=== PATIENT | female | born 1980 | race Caucasian/White ===

== ENCOUNTER 2016-06-09 11:43 | Outpatient (CLI) ==
[2016-04-20 13:22] VITALS: BMI 25.6
[2016-06-09 13:19] LABS: BILIRUBIN,URINE 3+ (NEGATIVE); KETONES,URINE 1+ (NEGATIVE); LEUKOCYTE ESTERASE ,URINE 3+ (NEGATIVE); NITRITE,URINE Negative (NEGATIVE); PH,URINE 5.5 (5-9); PROTEIN,URINE 3+ (NEGATIVE); URINE, BLOOD 3+ (NEGATIVE)
[2016-06-09 13:29] LABS: ADD URINE MICROSCOPIC YES
[2016-06-09 13:34] LABS: BACTERIA,URINE 3+ (NOT PRESENT)
== END 2016-06-09 11:44 | disposition home or self-care (01) ==
LOC: LAB 11:43
PROVIDERS: ATTEND Nurse Practitioner Family
DX: R31.9 Hematuria, unspecified (principal); N39.0 Urinary tract infection, site not specified
CPT/HCPCS: 81001; 87086; 87186

== ENCOUNTER 2016-06-28 11:21 | Emergency (ER) ==
[2016-06-28 11:21] VITALS: BMI 25.6
[2016-06-28 11:28] VITALS: BP 119/78; TEMP 96.3
--- NOTE | 2016-06-28 11:43 | ED.PDOC ---
General ED Provider: Dr. SILVIA YOST Chief Complaint: Tooth Problem Stated Complaint: Dental pain R lower jaw, radiates back to R ear. Time Seen by Physician: 11:41 Mode of Arrival: Walk-In Information Source: Patient Exam Limitations: No limitations Primary Care Provider: ALISA BOATENG Nursing and Triage Documentation Reviewed and Agree: Yes Review of Systems - Review Of Systems Constitutional: Reports: No symptoms Ears, Nose, Mouth, Throat: Reports: Mouth pain (Lower R jaw) Respiratory: Reports: No symptoms All Other Systems: Reviewed and Negative Past Medical History - Past Medical History Previously Healthy: Yes Endocrine: Reports: None Cardiovascular: Reports: None Respiratory: Reports: None Hematological: Reports: None Gastrointestinal: Reports: None Genitourinary: Reports: None Neuro/Psych: Reports: None, Unknown Musculoskeletal: Reports: None Cancer: Reports: None Last Menstrual Period: june 10 - Surgical History General Surgical History: Reports: , Appendectomy, Cholecystectomy, Tonsillectomy, Adenoidectomy, Other (6 exploratory laps ovarian cysts) - Family History Family History: Reports: Unknown - Social History Smoking Status: Never smoker Hx Substance Use: No Alcohol Screening: None Physical Exam - Physical Exam Appearance: Well-appearing Pain Distress: Mild Eyes: RUTH ANN, EOMI ENT: Ears normal (TM Right normal; no pain with movement of ear on examination) Neck: Supple Respiratory: Airway patent Skin: Warm, Dry, Normal color Psychiatric: Affect appropriate Critical Care Note - Critical Care Note Total Time (mins): 10 Course - Course Vital Signs: Temp Pulse Resp BP Pulse Ox 06/28/16 11:21 96.3 F L 79 20 119/78 99 Departure - Departure Time of Disposition: 11:51 Disposition: HOME SELF-CARE Discharge Problem: Abscess, dental Instructions: Dental Abscess (ED) Condition: Good Pt referred to PMD for follow-up: Yes (Follow up with dentist) Additional Instructions: Must follow up with dentist for definitive care. Take pain medication as prescribed; continue with your Clindamycin. Prescriptions: Tramadol HCl 50 mg PO Q6HR #10 tablet Allergies/Adverse Reactions: Allergies aspirin Adverse Reaction (Verified 06/28/16 11:26) Iodinated Contrast Media - Oral and [Iodinated Contrast Media - IV Dye] Adverse Reaction (Verified 06/28/16 11:26) Penicillins Adverse Reaction (Verified 06/28/16 11:26) Home Medications: Ambulatory Orders Diphenoxylate HCl/Atropine [Lomotil] 2 tab PO QID #10 tablet 03/17/16 Ferrous Gluconate 324 mg PO BID 10 Days 03/21/16 Tramadol HCl 50 mg PO Q6HR #10 tablet 06/28/16 Disposition Discussed With: Patient
== END 2016-06-28 12:00 | disposition home or self-care (01) ==
LOC: ED 11:21
DX: K04.7 Periapical abscess without sinus (principal)
CPT/HCPCS: 99282

== ENCOUNTER 2016-08-10 10:31 | Outpatient (CLI) | END 2016-08-10 10:32 | disposition home or self-care (01) | LOC: AMBL 10:31 | PROVIDERS: ATTEND Internal Medicine | DX: R56.9 Unspecified convulsions (principal); R40.20 Unspecified coma; R00.0 Tachycardia, unspecified ==

== ENCOUNTER 2016-10-20 18:21 | Outpatient (CLI) | END 2016-10-20 18:22 | disposition home or self-care (01) | LOC: AMBL 18:21 | PROVIDERS: ATTEND Emergency Medicine | DX: Z71.1 Person with feared health complaint in whom no diagnosis is made (principal) ==

== ENCOUNTER 2017-03-09 11:30 | Emergency (ER) ==
[2017-03-09 11:34] VITALS: BP 00/00; TEMP 96.1; BMI 21.0
--- NOTE | 2017-03-09 12:03 | ED.PDOC ---
General ED Provider: Dr. NEGRA HOSKINS Chief Complaint: Tooth Problem Stated Complaint: dental pain Time Seen by Physician: 11:33 Mode of Arrival: Walk-In Information Source: Patient Exam Limitations: No limitations Primary Care Provider: ALISA BOATENG Nursing and Triage Documentation Reviewed and Agree: Yes EENT Complaint Exam - Dental/Oral Complaint/Exam Mechanism of Injury: No known trauma Onset/Duration: 1 week Symptoms Are: Still present Timing: Constant Initial Severity: Moderate Current Severity: Moderate Character: Reports: Aching, Throbbing Aggravating: Reports: Heat, Cold, Chewing Alleviating: Reports: None Associated Signs and Symptoms: Denies: Swelling, Discharge, Fever, Foul odor, Foul taste in mouth Related History: Reports: Similar episode Cardiac Risk Factors: Reports: None Dental/Oral Surgical History: Reports: None Tooth Findings: Present: Gross caries Cervical Lymphadenopathy Present: No Facial Swelling Present: No Bleeding Present: No Septal Hematoma: No Foreign Body Present: No Dysphagia Present: No Drooling Present: No Asymmetrical Tonsillar Swelling Present: No Uvula Midline: No Marcie-tonsillar Fluctuence: No Trismus Present: No Palatal Petechiae Present: No Scarlatinaform Rash Present: No Teeth Picture: 1 - decay Differential Diagnoses: Dental Caries Review of Systems - Review Of Systems Constitutional: Reports: No symptoms Eyes: Reports: No symptoms Ears, Nose, Mouth, Throat: Reports: No symptoms Respiratory: Reports: No symptoms Cardiac: Reports: No symptoms GI: Reports: No symptoms : Reports: No symptoms Musculoskeletal: Reports: No symptoms Skin: Reports: No symptoms Neurological: Reports: No symptoms Endocrine: Reports: No symptoms Hematologic/Lymphatic: Reports: No symptoms All Other Systems: Reviewed and Negative Past Medical History - Past Medical History Previously Healthy: Yes Endocrine: Reports: None Cardiovascular: Reports: None Respiratory: Reports: None Hematological: Reports: None Gastrointestinal: Reports: None Genitourinary: Reports: None Neuro/Psych: Reports: None, Unknown Musculoskeletal: Reports: None Cancer: Reports: None Last Menstrual Period: 1 week ago - Surgical History General Surgical History: Reports: , Appendectomy, Cholecystectomy, Tonsillectomy, Adenoidectomy, Other (6 exploratory laps ovarian cysts) - Family History Family History: Reports: Unknown - Social History Smoking Status: Never smoker Hx Substance Use: No Alcohol Screening: None Physical Exam - Physical Exam Appearance: Well-appearing, No pain distress, Well-nourished Eyes: RUTH ANN, EOMI, Conjunctiva clear ENT: Ears normal, Nose normal, Oropharynx normal Respiratory: Airway patent, Breath sounds clear, Breath sounds equal, Respirations nonlabored Cardiovascular: RRR, Pulses normal, No rub, No murmur GI/: Soft, Nontender, No masses, Bowel sounds normal, No Organomegaly Musculoskeletal: Normal strength, ROM intact, No edema, No calf tenderness Skin: Warm, Dry, Normal color Neurological: Sensation intact, Motor intact, Reflexes intact, Cranial nerves intact, Alert, Oriented Psychiatric: Affect appropriate, Mood appropriate Critical Care Note - Critical Care Note Total Time (mins): 0 Course - Course Vital Signs: Temp Pulse Resp BP Pulse Ox 03/09/17 11:30 96.1 F L 90 18 00/00 L 99 Departure - Departure Time of Disposition: 12:02 Disposition: HOME SELF-CARE Discharge Problem: Toothache Instructions: Toothache (ED) Condition: Good Pt referred to PMD for follow-up: Yes Additional Instructions: Please call your Family Physician as soon as possible to schedule a follow-up appointment. Allergies/Adverse Reactions: Allergies aspirin Adverse Reaction (Verified 03/09/17 11:34) Iodinated Contrast- Oral and IV Dye [Iodinated Contrast Media - IV Dye] Adverse Reaction (Verified 03/09/17 11:34) Penicillins Adverse Reaction (Verified 03/09/17 11:34) Home Medications: Ambulatory Orders 1 [No Reported Medications] 03/09/17
== END 2017-03-09 12:19 | disposition home or self-care (01) ==
LOC: ED 11:30
DX: K08.89 Other specified disorders of teeth and supporting structures (principal); K02.7 Dental root caries
CPT/HCPCS: 99282

== ENCOUNTER 2017-06-01 11:15 | Emergency (ER) ==
[2017-06-01 11:20] VITALS: BP 107/68; TEMP 97; BMI 23.3
--- NOTE | 2017-06-01 12:02 | ED.PDOC ---
General ED Provider: Dr. NEGRA HOSKINS Chief Complaint: Back Pain Stated Complaint: back pain Time Seen by Physician: 11:17 Mode of Arrival: Walk-In Information Source: Patient Exam Limitations: No limitations Primary Care Provider: ALISA BOATENG Nursing and Triage Documentation Reviewed and Agree: Yes Reviewed sepsis parameters & appropriate labs ordered?: Yes System Inflammatory Response Syndrome: Not Applicable Sepsis Protocol: For patient's 13 years and over: Temp is 96.8 and below OR 101 and greater Pulse >90 BPM Resp >20/minute Acutely Altered Mental Status Are patient's symptoms suggestive of a new infection, such as: -Pneumonia -Skin, Soft Tissue -Endocarditis -UTI -Bone, Joint Infection -Implantable Device -Acute Abdominal Infection -Wound Infection -Meningitis -Blood Stream Catheter Infection -Unknown Musculoskeletal Complaint Exam - Back Pain Complaint/Exam Mechanism of Injury: Reports: No known trauma Onset/Duration: 5 days Symptoms Are: Still present Timing: Constant Episodes Lasting: Seconds Initial Severity: Mild Current Severity: Mild Location: Reports: Discrete Character: Reports: Aching Aggravating: Reports: Movements, Lifting, Bending, Walking Alleviating: Reports: Rest, Position Associated Signs and Symptoms: Denies: Swelling, Redness, Bruising, Fever, Weakness, Numbness, Tingling, Abdominal pain, Flank pain, Bladder incontinence, Bowel incontinence, Weight loss, Pain with weight bearing Related History: Reports: Similar episode TAD Risk Factors: Reports: None AAA Risk Factors: Reports: None Cauda Equina Risk Factors: Reports: None Epidural Abcess Risk Factors: Reports: None Related Surgical History: Reports: None Focal Tenderness: No Paraspinal Muscle Tenderness: No Paraspinal Muscle Spasm: No Scoliosis: No Lordosis: No Kyphosis: No SLR Test: Right Negative, Left Negative Hip Motion Testing Pain: Right Negative, Left Negative Focal Weakness: Present: None Focal Sensory Loss: Present: None Gait: Present: Normal Differential Diagnoses: Strain, Sprain Review of Systems - Review Of Systems Constitutional: Reports: No symptoms Eyes: Reports: No symptoms Ears, Nose, Mouth, Throat: Reports: No symptoms Respiratory: Reports: No symptoms Cardiac: Reports: No symptoms GI: Reports: No symptoms : Reports: No symptoms Musculoskeletal: Reports: Back pain Skin: Reports: No symptoms Neurological: Reports: No symptoms Endocrine: Reports: No symptoms Hematologic/Lymphatic: Reports: No symptoms All Other Systems: Reviewed and Negative Past Medical History - Past Medical History Previously Healthy: Yes Endocrine: Reports: None Cardiovascular: Reports: None Respiratory: Reports: None Hematological: Reports: None Gastrointestinal: Reports: None Genitourinary: Reports: None Neuro/Psych: Reports: None, Unknown Musculoskeletal: Reports: None Cancer: Reports: None Last Menstrual Period: 1 week ago - Surgical History General Surgical History: Reports: , Appendectomy, Cholecystectomy, Tonsillectomy, Adenoidectomy, Other (6 exploratory laps ovarian cysts) - Family History Family History: Reports: Unknown - Social History Smoking Status: Never smoker Hx Substance Use: No Alcohol Screening: None - Immunizations Tetanus Shot up to Date: No Physical Exam - Physical Exam Appearance: Well-appearing, No pain distress, Well-nourished Eyes: RUTH ANN, EOMI, Conjunctiva clear ENT: Ears normal, Nose normal, Oropharynx normal Respiratory: Airway patent, Breath sounds clear, Breath sounds equal, Respirations nonlabored Cardiovascular: RRR, Pulses normal, No rub, No murmur GI/: Soft, Nontender, No masses, Bowel sounds normal, No Organomegaly Musculoskeletal: Normal strength, ROM intact, No edema, No calf tenderness Skin: Warm, Dry, Normal color Neurological: Sensation intact, Motor intact, Reflexes intact, Cranial nerves intact, Alert, Oriented Psychiatric: Affect appropriate, Mood appropriate Critical Care Note - Critical Care Note Total Time (mins): 0 Course - Course Orders, Labs, Meds: Lab Review 06/01/17 11:53 Urine Color Yellow Urine Clarity Clear Urine pH 7.0 Ur Specific [place] 1.020 Urine Protein Negative Urine Glucose (UA) Negative Urine Ketones Negative Urine Blood Negative Urine Nitrite Negative Urine Bilirubin Negative Urine Urobilinogen 0.2 Ur Leukocyte Esterase Negative Orders Category Date Time Status URINALYSIS C & S IF INDICATED Stat LAB 06/01/17 11:53 Completed Vital Signs: Temp Pulse Resp BP Pulse Ox 06/01/17 11:16 97 F L 88 20 107/68 100 Departure - Departure Time of Disposition: 12:01 Disposition: HOME SELF-CARE Discharge Problem: Backache Instructions: Acute Low Back Pain (ED), Back Pain (ED), Flank Pain (ED), Lower Back Exercises (ED) Condition: Good Pt referred to PMD for follow-up: Yes Additional Instructions: Please call your Family Physician as soon as possible to schedule a follow-up appointment. Prescriptions: Hydrocodone/Acetaminophen [[place] 10-325 Tablet] 1 each PO Q8HR #7 tablet Allergies/Adverse Reactions: Allergies aspirin Adverse Reaction (Verified 06/01/17 11:21) Iodinated Contrast- Oral and IV Dye [Iodinated Contrast Media - IV Dye] Adverse Reaction (Verified 06/01/17 11:21) Penicillins Adverse Reaction (Verified 06/01/17 11:21) Home Medications: Ambulatory Orders Hydrocodone/Acetaminophen [[place] 10-325 Tablet] 1 each PO Q8HR #7 tablet Disposition Discussed With: Patient
== END 2017-06-01 12:08 | disposition home or self-care (01) ==
LOC: ED 11:15
DX: M54.9 Dorsalgia, unspecified (principal)
CPT/HCPCS: 81001; 99283

== ENCOUNTER 2017-06-22 12:25 | Emergency (ER) ==
[2017-06-22 12:30] VITALS: BP 104/69; TEMP 97.6; BMI 23.8
[2017-06-22] MEDS ORDERED: NORCO 10-325 PO STA (12:55)
[2017-06-22] MEDS ORDERED: TORADOL IM STA (12:55)
--- NOTE | 2017-06-22 14:14 | CT ---
EXAM: CT ABDOMEN AND PELVIS HISTORY: Left flank pain TECHNIQUE: CT abdomen and pelvis without intravenous contrast. Images were reconstructed using 3 mm section thickness. Reformations were prepared. COMPARISON: 03/17/2016 FINDINGS: The kidneys appear normal. No evidence of hydronephrosis, nephrolithiasis or perinephric fat strandi ng. Ureters are clear. Urinary bladder is unremarkable. No focal hepatic or splenic lesions identified within limits of this unenhanced exam. Gallbladder, p ancreas and adrenal glands appear normal. Normal abdominal aorta. Stomach is within normal limits. The appendix, if present is not clearly seen. Moderate fecal retention throughout most of the colon. There is mild distal colon diverticulosis. Mild wall thickening and surrounding paracolic stranding is seen at the distal sigmoid level. There is no ascites or intra-abdominal abscess. The uterus ap pears normal. No ventral abdominal wall hernia or acute bony finding. The lung bases are clear. No pneumoperitoneum. IMPRESSION: 1. Mild wall thickening and surrounding paracolic fat stranding at the distal sigmoid level with jorge l dence of regional diverticulosis. Consider early diverticulitis or colitis. Less likely a neoplasti c process. No ascites, abscess or free air. 2. Kidneys, ureters and urinary bladder are normal.
--- NOTE | 2017-06-22 15:03 | ED.PDOC ---
General ED Provider: Dr. NEGRA HOSKINS Chief Complaint: Abdominal Pain Stated Complaint: abdominal pain Time Seen by Physician: 13:00 (history of renal stone pt seen on arrival by DIANDRA ) Mode of Arrival: Walk-In Information Source: Patient Exam Limitations: No limitations Primary Care Provider: ALISA BOATENG Nursing and Triage Documentation Reviewed and Agree: Yes Reviewed sepsis parameters & appropriate labs ordered?: Yes System Inflammatory Response Syndrome: Not Applicable Sepsis Protocol: For patient's 13 years and over: Temp is 96.8 and below OR 101 and greater Pulse >90 BPM Resp >20/minute Acutely Altered Mental Status Are patient's symptoms suggestive of a new infection, such as: -Pneumonia -Skin, Soft Tissue -Endocarditis -UTI -Bone, Joint Infection -Implantable Device -Acute Abdominal Infection -Wound Infection -Meningitis -Blood Stream Catheter Infection -Unknown System Inflammatory Response Syndrome: Not Applicable GI Complaint Exam - Abdominal Pain Complaint/Exam Onset: Gradual Duration: 1 DAY LLQ PAIN SIMILAR TO PRIOR RENAL STONE PAIN PT SUFFERED Symptoms Are: Still present Timing: Constant Initial Severity: Moderate Current Severity: Moderate Location of Pain: LLQ Radiates To: Reports: LLQ Character: Reports: Cramping Aggravating: Reports: None Alleviating: Reports: Rest Associated Signs and Symptoms: Reports: Back pain (LEFT FLANL). Denies: Diaphoresis, Fever, Cough, Chest pain, Dizziness, Constipation, Blood in stool, Dysuria, Urinary frequency, Decreased urine output, Decreased appetite, Vaginal bleeding, Vaginal discharge, Nausea, Vomiting, Diarrhea, Sore throat, Decreased activity Related History: Reports: Similar episode (RENAL STONE PER PT ) AAA Risk Factors: Reports: None Cardiac Risk Factors: Reports: None Ectopic Risk Factors: Reports: None Ovarian Torsion Risk Factors: Reports: None Surgical Obstruction Risk Factors: Reports: None Related Surgical History: Reports: None Patient Rh Status: Unknown Abdominal Findings: Present: None Differential Diagnoses: Appendicitis, Bowel Obstruction, Constipation, Diverticulitis, Renal Colic, UTI Review of Systems - Review Of Systems Constitutional: Reports: No symptoms Eyes: Reports: No symptoms Ears, Nose, Mouth, Throat: Reports: No symptoms Respiratory: Reports: No symptoms Cardiac: Reports: No symptoms GI: Reports: Abdominal pain : Reports: Flank pain Musculoskeletal: Reports: No symptoms Skin: Reports: No symptoms Neurological: Reports: No symptoms Endocrine: Reports: No symptoms Hematologic/Lymphatic: Reports: No symptoms All Other Systems: Reviewed and Negative Past Medical History - Past Medical History Previously Healthy: Yes Endocrine: Reports: None Cardiovascular: Reports: None Respiratory: Reports: None Hematological: Reports: None Gastrointestinal: Reports: None Genitourinary: Reports: None Neuro/Psych: Reports: None, Unknown Musculoskeletal: Reports: None Cancer: Reports: None Last Menstrual Period: 06/12/17 - Surgical History General Surgical History: Reports: , Appendectomy, Cholecystectomy, Tonsillectomy, Adenoidectomy, Other (6 exploratory laps ovarian cysts) - Family History Family History: Reports: Unknown - Social History Smoking Status: Never smoker Hx Substance Use: No Alcohol Screening: None - Immunizations Tetanus Shot up to Date: Yes Physical Exam - Physical Exam Appearance: Well-appearing, No pain distress, Well-nourished Eyes: RUTH ANN, EOMI, Conjunctiva clear ENT: Ears normal, Nose normal, Oropharynx normal Respiratory: Airway patent, Breath sounds clear, Breath sounds equal, Respirations nonlabored Cardiovascular: RRR, Pulses normal, No rub, No murmur GI/: Soft, Nontender, No masses, Bowel sounds normal, No Organomegaly Musculoskeletal: Normal strength, ROM intact, No edema, No calf tenderness Skin: Warm, Dry, Normal color Neurological: Sensation intact, Motor intact, Reflexes intact, Cranial nerves intact, Alert, Oriented Psychiatric: Affect appropriate, Mood appropriate Interpretation - Radiology Interpretation Radiology Interpretation By: Radiologist Radiology Results: Positive (EARLY DIVERTICULITIS) Critical Care Note - Critical Care Note Total Time (mins): 0 Course - Course Hematology/Chemistry: 06/22/17 13:03 06/22/17 13:03 Orders, Labs, Meds: Lab Review 06/22/17 06/22/17 06/22/17 13:03 13:03 13:03 WBC 12.43 H RBC 3.68 L Hgb 8.7 L Hct 27.4 L MCV 74.5 L MCH 23.6 L MCHC 31.8 RDW Coeff of Lenny 17.9 H Plt Count 308 Immature Gran % (Auto) 0.4 Neut % (Auto) 75.9 Lymph % (Auto) 14.9 [place] % (Auto) 7.3 Eos % (Auto) 0.9 Baso % (Auto) 0.6 Immature Gran # (Auto) 0.1 Neut # 9.4 H Lymph # 1.9 [place] # 0.9 Eos # 0.1 Baso # 0.1 Sodium 140 Potassium 4.4 Chloride 109 H Carbon Dioxide 23 Anion Gap 12.4 BUN 7 Creatinine 0.63 Estimated GFR (MDRD) 105.00 BUN/Creatinine Ratio 11.11 Glucose 81 Calcium 8.6 Total Bilirubin 0.3 AST 18 ALT 13 Alkaline Phosphatase 58 Total Protein 6.4 Albumin 3.2 L Globulin 3.2 Albumin/Globulin Ratio 1.00 Urine Color Yellow Urine Clarity Clear Urine pH 6.0 Ur Specific [place] 1.020 Urine Protein Negative Urine Glucose (UA) Negative Urine Ketones Negative Urine Blood Trace-intact Urine Nitrite Negative Urine Bilirubin Negative Urine Urobilinogen 0.2 Ur Leukocyte Esterase Negative Urine Microscopic RBC 0-2 Ur Squamous Epith Cells 30-50 Urine Test 06/22/17 13:03 WBC RBC Hgb Hct MCV MCH MCHC RDW Coeff of [place]enny Plt Count Immature Gran % (Auto) Neut % (Auto) Lymph % (Auto) [place] % (Auto) Eos % (Auto) Baso % (Auto) Immature Gran # (Auto) Neut # Lymph # [place] # Eos # Baso # Sodium Potassium Chloride Carbon Dioxide Anion Gap BUN Creatinine Estimated GFR (MDRD) BUN/Creatinine Ratio Glucose Calcium Total Bilirubin AST ALT Alkaline Phosphatase Total Protein Albumin Globulin Albumin/Globulin Ratio Urine Color Urine Clarity Urine pH Ur Specific [place] Urine Protein Urine Glucose (UA) Urine Ketones Urine Blood Urine Nitrite Urine Bilirubin Urine Urobilinogen Ur Leukocyte Esterase Urine Microscopic RBC Ur Squamous Epith Cells Urine Test Negative Orders Category Date Time Status CBC W/ AUTO DIFF Stat LAB 06/22/17 13:03 Completed COMPREHENSIVE METABOLIC PANEL Stat LAB 06/22/17 13:03 Completed URINALYSIS C & S IF INDICATED Stat LAB 06/22/17 13:03 Completed URINE Stat LAB 06/22/17 13:03 Completed Hydrocodone Bit/Acetaminophen [[address] 10-325] MEDS 06/22/17 12:55 Discontinued 1 tab PO ONCE STA Ketorolac Tromethamine [Toradol] MEDS 06/22/17 12:55 Discontinued 60 mg IM ONCE STA CT ABD/PEL WO RENAL STONE PROT Stat RADS 06/22/17 12:53 Completed Medications Discontinued Medications Generic Name Dose Route Start Last Admin Trade Name Freq PRN Reason Stop Dose Admin Acetaminophen/Hydrocodone Bitart 1 tab 06/22/17 12:55 06/22/17 13:[address] 10-325 PO 06/22/17 12:56 1 tab ONCE STA Administration Ketorolac Tromethamine 60 mg 06/22/17 12:55 06/22/17 13:58 Toradol IM 06/22/17 12:56 60 mg ONCE STA Administration Vital Signs: Temp Pulse Resp BP Pulse Ox 06/22/17 12:25 97.6 F 88 22 104/69 98 Departure - Departure Time of Disposition: 15:04 (D/C INST GIVEN WITH SU[facility] AT BEDSIDE AT ALL TIMES ) Disposition: HOME SELF-CARE Discharge Problem: Abdominal pain Diverticulosis Qualifiers: Diverticulosis site: unspecified location Instructions: Diverticulitis (ED), Acute Abdominal Pain (ED) Condition: Good Pt referred to PMD for follow-up: Yes IPMP verified?: Yes Additional Instructions: Please call your Family Physician as soon as possible to schedule a follow-up appointment.PLEASE MAKE SURE YOU DO FOLLOW UP. I HAVE GIVEN YOU MEDS FOR 5 DAYS IF YOU IGNORE THIS ISSUE YOU MAY END NEEDING SURGERY, . SOMETIMES MAJOR SURGERY , AND BOWEL INFECTION. TAKE MATTER SERIOUSLY. Prescriptions: Hydrocodone/Acetaminophen [[address] 10-325 Tablet] 1 each PO Q8HR #6 tablet Allergies/Adverse Reactions: Allergies aspirin Adverse Reaction (Verified 06/01/17 11:21) Iodinated Contrast- Oral and IV Dye [Iodinated Contrast Media - IV Dye] Adverse Reaction (Verified 06/01/17 11:21) Penicillins Adverse Reaction (Verified 06/01/17 11:21) Home Medications: Ambulatory Orders Hydrocodone/Acetaminophen [[address] 10-325 Tablet] 1 each PO Q8HR #6 tablet
== END 2017-06-22 15:15 | disposition home or self-care (01) ==
LOC: ED 12:25
DX: K57.90 Diverticulosis of intestine, part unspecified, without perforation or abscess without bleeding (principal); D64.9 Anemia, unspecified; R10.32 Left lower quadrant pain; Z87.442 Personal history of urinary calculi
CPT/HCPCS: 36415; 74176; 80053; 81001; 81025; 85025; 96372; 99283

== ENCOUNTER 2017-06-24 14:28 | Outpatient (CLI) ==
--- NOTE | 2017-06-24 15:28 | DI ---
EXAM: PA and lateral views of the chest HISTORY: Chest pain COMPARISON: Chest x-ray 03/17/17. FINDINGS: The cardiomediastinal silhouette is normal. There is no pneumothorax or pleural effusion. There is no consolidation, nodule or mass. The osseous structures are unremarkable. There are surg ical clips in right upper quadrant. IMPRESSION: No acute cardiopulmonary process
== END 2017-06-24 14:29 | disposition home or self-care (01) ==
LOC: RAD 14:28
PROVIDERS: ATTEND Nurse Practitioner Family
DX: D64.9 Anemia, unspecified (principal); R10.84 Generalized abdominal pain; R07.9 Chest pain, unspecified
CPT/HCPCS: 36415; 82150; 82607; 82728; 83540; 83550; 83690; 84466; 85045; 86677; 93005; 93010

== ENCOUNTER 2017-07-13 10:58 | Emergency (ER) ==
[2017-07-13 11:10] VITALS: BP 104/56; TEMP 99.4; BMI 25.4
--- NOTE | 2017-07-13 12:24 | ED.PDOC ---
General ED Provider: Dr. NEGRA HOSKINS Chief Complaint: Respiratory Complaint Stated Complaint: cough , congestion , flu like symp Time Seen by Physician: 11:00 Mode of Arrival: Walk-In Information Source: Patient Exam Limitations: No limitations Primary Care Provider: ALISA BOATENG Nursing and Triage Documentation Reviewed and Agree: Yes Reviewed sepsis parameters & appropriate labs ordered?: Yes System Inflammatory Response Syndrome: Not Applicable Sepsis Protocol: For patient's 13 years and over: Temp is 96.8 and below OR 101 and greater Pulse >90 BPM Resp >20/minute Acutely Altered Mental Status Are patient's symptoms suggestive of a new infection, such as: -Pneumonia -Skin, Soft Tissue -Endocarditis -UTI -Bone, Joint Infection -Implantable Device -Acute Abdominal Infection -Wound Infection -Meningitis -Blood Stream Catheter Infection -Unknown System Inflammatory Response Syndrome: Not Applicable Respiratory Complaint Exam - Respiratory Complaint/Exam Onset/Duration: 3 days Symptoms Are: Still present Timing: Constant, Intermittent Initial Severity: Mild Current Severity: Mild Location: Nose, Throat, Chest Character: Reports: Non-productive cough Aggravating: Reports: URI Alleviating: Reports: None Associated Signs and Symptoms: Denies: Rapid breathing, Dyspnea, Fever, Chills, Chest pain, Pleuritic chest pain, Wheezing, Hemoptysis, Dizziness, Calf pain, Calf swelling, Edema, URI, Nasal congestion, Hoarseness, Sinus discomfort, Vomiting, Sore throat, Weight loss, Decreased oral intake, Increased thirst, Increased appetite, Increased urination Related History: Reports: Similar episode History of Healthcare-Acquired Pneumonia: No Related Surgical History: Reports: None Pulmonary Embolism Risk Factors: None Pseudomonas Risk Factors: Reports: None Tuberculosis Risk Factors: Reports: None Status Asthmaticus Risk Factors: Reports: None Home Oxygen Use: No Recent Stress Test: No Recent Echo/LV Function: No Current Antibiotic Use: No Current Asthma Medication Use: No Respiratory Distress: None Inadequate Respiratory Effort: No Dysphagia Present: No Stridor Present: No JVD Present: No Accessory Muscle Use: No Retractions: Not Present Diminished Breath Sounds: No Sinus Tenderness: None Grunting Respirations: No Kussmaul Respirations: No Differential Diagnoses: Bronchitis Review of Systems - Review Of Systems Constitutional: Reports: Malaise, Loss of appetite Eyes: Reports: No symptoms Ears, Nose, Mouth, Throat: Reports: No symptoms Respiratory: Reports: Cough Cardiac: Reports: No symptoms GI: Reports: No symptoms : Reports: No symptoms Musculoskeletal: Reports: No symptoms Skin: Reports: No symptoms Neurological: Reports: No symptoms Endocrine: Reports: No symptoms Hematologic/Lymphatic: Reports: No symptoms All Other Systems: Reviewed and Negative Past Medical History - Past Medical History Previously Healthy: Yes Endocrine: Reports: None Cardiovascular: Reports: None Respiratory: Reports: None Hematological: Reports: None Gastrointestinal: Reports: None Genitourinary: Reports: None Neuro/Psych: Reports: None, Unknown Musculoskeletal: Reports: None Cancer: Reports: None Last Menstrual Period: 2 days ago - Surgical History General Surgical History: Reports: , Appendectomy, Cholecystectomy, Tonsillectomy, Adenoidectomy, Other (6 exploratory laps ovarian cysts) - Family History Family History: Reports: Unknown - Social History Smoking Status: Never smoker Hx Substance Use: No Alcohol Screening: None Physical Exam - Physical Exam Appearance: Well-appearing, No pain distress, Well-nourished Eyes: RUTH ANN, EOMI, Conjunctiva clear ENT: Ears normal, Nose normal, Oropharynx normal Respiratory: Rhonchi Cardiovascular: RRR, Pulses normal, No rub, No murmur GI/: Soft, Nontender, No masses, Bowel sounds normal, No Organomegaly Musculoskeletal: Normal strength, ROM intact, No edema, No calf tenderness Skin: Warm, Dry, Normal color Neurological: Sensation intact, Motor intact, Reflexes intact, Cranial nerves intact, Alert, Oriented Psychiatric: Affect appropriate, Mood appropriate Critical Care Note - Critical Care Note Total Time (mins): 0 Course - Course Orders, Labs, Meds: Lab Review 07/13/17 11:28 Influenza A (Rapid) Negative by naat Influenza B (Rapid) Negative by naat Orders Category Date Time Status FLU A/B MOLECULAR Stat LAB 07/13/17 11:28 Completed MOLECULAR GROUP A STREP Stat LAB 07/13/17 11:28 Completed Vital Signs: Temp Pulse Resp BP Pulse Ox 07/13/17 11:03 99.4 F 89 16 104/56 L 99 Departure - Departure Time of Disposition: 12:24 Disposition: HOME SELF-CARE Discharge Problem: Bronchitis Instructions: Bronchospasm (ED), Wheezing (ED), Allergies in Children (ED), Acute Bronchitis (ED) Condition: Good Pt referred to PMD for follow-up: Yes IPMP verified?: No Additional Instructions: Please call your Family Physician as soon as possible to schedule a follow-up appointment. Allergies/Adverse Reactions: Allergies aspirin Adverse Reaction (Verified 07/13/17 11:43) Iodinated Contrast- Oral and IV Dye [Iodinated Contrast Media - IV Dye] Adverse Reaction (Verified 07/13/17 11:43) Penicillins Adverse Reaction (Verified 07/13/17 11:43)
== END 2017-07-13 12:42 | disposition home or self-care (01) ==
LOC: ED 10:58
DX: J20.9 Acute bronchitis, unspecified (principal)
CPT/HCPCS: 87502; 87651; 99283